=== PATIENT | female | born 1995 | race Caucasian/White ===

== ENCOUNTER 2018-11-02 16:42 | Emergency (ER) | payer OTHER ==
[2018-11-02 17:05] VITALS: BP 94/48; PULSE 92; TEMP 98.4; BMI 23.4
[2018-11-02] MEDS ORDERED: RANITIDINE HCL 150 MG/10 ML UNIT-DOSE PO ONE (17:38)
--- NOTE | 2018-11-02 18:05 | PDOC ---
History of Present Illness - General Chief Complaint: Pain, Acute Stated Complaint: ABDOMINAL PAIN Time Seen by Provider: 11/02/18 17:22 History Source: Patient Exam Limitations: No Limitations Past History - Past Medical History Allergies/Adverse Reactions: Allergies Allergy/AdvReac Type Severity Reaction Status Date / Time Penicillins Allergy Verified 11/02/18 17:02 Home Medications: Ambulatory Orders Azithromycin [Zithromax -] 250 mg PO DAILY #4 tab 04/12/16 Cardiac Disorders: Yes (palpitations) - Suicide/Smoking/Psychosocial Hx Smoking History: Never smoked Have you smoked in the past 12 months: No Hx Alcohol Use: No Drug/Substance Use Hx: No Substance Use Type: None *Physical Exam - Vital Signs Last Vital Signs Temp Pulse Resp BP Pulse Ox 98.4 F 92 H 16 94/48 L 100 11/02/18 17:02 11/02/18 17:02 11/02/18 17:02 11/02/18 17:02 11/02/18 17:02 - Physical Exam General Appearance: No: Apparent Distress Respiratory/Chest: positive: Lungs Clear, Normal Breath Sounds. negative: Respiratory Distress Cardiovascular: positive: Regular Rhythm, Regular Rate, S1, S2. negative: Murmur Gastrointestinal/Abdominal: positive: Tender (mild TTP along epigastric site), Soft. negative: Distended, Guarding, Rebound, Tenderness, Hernia, Mass Musculoskeletal: negative: CVA Tenderness Neurologic: positive: Alert, Normal Mood/Affect ED Treatment Course - ADDITIONAL ORDERS Additional order review: Laboratory Results 11/02/18 17:40 Urine HCG, Qual Negative - RADIOLOGY Radiology Studies Ordered: Category Date Time Status ABDOMEN FLAT & UPRIGHT [RAD] Stat Radiology 11/02/18 17:51 Ordered - Medications Given in the ED: ED Medications Discontinued Medications Generic Name Dose Route Start Last Admin Trade Name Freq PRN Reason Stop Dose Admin Ranitidine HCl 150 mg 11/02/18 17:38 11/02/18 17:55 Zantac Oral Solution - PO 11/02/18 17:39 150 mg ONCE ONE Administration Medical Decision Making - Medical Decision Making 23 y/o F hx of GERD, pancreatic CA s/p whipple (2 years ago), scoliosis presents with upper abdominal pain x 2 weeks, worse in AM and with food intake. States currently only takes Tums as needed for GERD Also having constipation x 2 weeks for which she has not yet tried any medications. Last BM was 2-3 days ago. Went to UC yesterday where she had labs and RUQ sono done which were normal per patient. Denies fever, sob, cp, n/v, urinary complaints. +social alcohol intake. Denies smoking. Used to smoke marijuana but quit in 05/2018. Possible pain related to GERD vs constipation UCG done and was negative Plan: Trial of Zantac, Abdominal flat and upright xray 11/02/18 17:57 Abdominal xray shows moderate stool, no evidence of obstruction No evidence of fecal impaction based on rectal exam Patient currently drinking Mg Citrate Will reassess how patient feels afterward 11/02/18 18:51 Patient signed out to Royce Holt pending reassessment 11/02/18 19:06 *DC/Admit/Observation/Transfer Diagnosis at time of Disposition: GERD (gastroesophageal reflux disease) Qualifiers: Esophagitis presence: esophagitis presence not specified Qualified Code(s): K21.9 - Gastro-esophageal reflux disease without esophagitis Constipation Qualifiers: Constipation type: unspecified constipation type Qualified Code(s): K59.00 - Constipation, unspecified - Referrals - Patient Instructions - Post Discharge Activity
[2018-11-02] MEDS ORDERED: MAGNESIUM CITRATE 300 ML BOTTLE PO ONE (18:30)
--- NOTE | 2018-11-02 19:27 | PDOC ---
*Physical Exam - Vital Signs Last Vital Signs Temp Pulse Resp BP Pulse Ox 98.4 F 92 H 16 94/48 L 100 11/02/18 17:02 11/02/18 17:02 11/02/18 17:02 11/02/18 17:02 11/02/18 17:02 - Physical Exam General Appearance: Yes: Appropriately Dressed. No: Apparent Distress HEENT: positive: Normal ENT Inspection Neck: positive: Trachea midline, Supple Respiratory/Chest: positive: Lungs Clear, Normal Breath Sounds. negative: Respiratory Distress, Accessory Muscle Use Cardiovascular: positive: Regular Rhythm, Regular Rate. negative: Murmur Gastrointestinal/Abdominal: positive: Normal Bowel Sounds, Tender (mild epigastric), Soft Musculoskeletal: positive: Normal Inspection. negative: CVA Tenderness ED Treatment Course - ADDITIONAL ORDERS Additional order review: Laboratory Results 11/02/18 17:40 Urine HCG, Qual Negative - Medications Given in the ED: ED Medications Discontinued Medications Generic Name Dose Route Start Last Admin Trade Name Freq PRN Reason Stop Dose Admin Magnesium Citrate 300 ml 11/02/18 18:30 11/02/18 18:46 Citroma - PO 11/02/18 18:31 300 ml ONCE ONE Administration Ranitidine HCl 150 mg 11/02/18 17:38 11/02/18 17:55 Zantac Oral Solution - PO 11/02/18 17:39 150 mg ONCE ONE Administration Progress Note - Progress Note Progress Note: Received signout from NATASHA Pascal. Briefly this is a 23-year-old woman past medical history of GERD, pancreatic cancer status post Whipple 2017 presents with upper abdominal pain for the past 2 weeks. Patient was seen at urgent care and told to follow up with GI. Patient had labs and right upper quadrant ultrasound was performed which the patient states were unremarkable. Abdominal x-ray shows moderate stool without evidence of obstruction or free air. Vital signs remarkable for blood pressure 94/48, heart rate of 92. Patient has received mag citrate is pending reevaluation. Medical Decision Making - Medical Decision Making 11/02/18 21:02 Patient reports she's been passing flatus and has had improvement in pain she is feeling. Patient feels safe for discharge. I will discharge the patient home to follow-up with senior safety management consultant. Patient reports she has a hard time getting an appointment with her senior safety management consultant. I will provide her with a number of an additional resource should she need it. *DC/Admit/Observation/Transfer Diagnosis at time of Disposition: GERD (gastroesophageal reflux disease) Qualifiers: Esophagitis presence: esophagitis presence not specified Qualified Code(s): K21.9 - Gastro-esophageal reflux disease without esophagitis Constipation Qualifiers: Constipation type: unspecified constipation type Qualified Code(s): K59.00 - Constipation, unspecified - Discharge Dispostion Disposition: HOME Condition at time of disposition: Fair Decision to Admit order: No - Referrals Referrals: Kee George MD [Staff Physician] - - Patient Instructions Additional Instructions: Rest, drink lots of fluids: Teas, water, soups Judy ghazal, carbonated beverages for the bubbles May try peppermint teas Avoid heavy , spicy or fatty foods until symptoms have resolved Continue [id number] medications for symptomatic relief Tylenol or Motrin for fever and pain You have been given a referral for a senior safety management consultant. Call for re-evaluation of your symptoms. Followup with private physician in one to 2 days as needed Return to emergency department for worsened symptoms, fevers, dehydration - Post Discharge Activity
== END 2018-11-02 20:50 | disposition home or self-care (01) ==
LOC: JER 16:42
DX: K21.9 Gastro-esophageal reflux disease without esophagitis (principal); K59.00 Constipation, unspecified; Z85.07 Personal history of malignant neoplasm of pancreas
CPT/HCPCS: 74019-TC-FY; 84703; 99281-25

== ENCOUNTER 2018-12-10 09:09 | Emergency (ER) | payer OTHER ==
[2018-12-10 09:17] VITALS: BP 98/61; PULSE 79; TEMP 98.3; BMI 23.4
[2018-12-10] MEDS ORDERED: MAG HYDROX/AL HYDROX/SIMETH 30 ML UNIT-DOSE CUP PO ONE (09:42)
[2018-12-10] MEDS ORDERED: MAG HYDROX/AL HYDROX/SIMETH 30 ML UNIT-DOSE CUP ONE (09:52)
--- NOTE | 2018-12-10 10:19 | PDOC ---
History of Present Illness - General Chief Complaint: Diarrhea Stated Complaint: DIARRHEA / LWR ABD PAIN Time Seen by Provider: 12/10/18 09:31 History Source: Patient Exam Limitations: Clinical Condition - History of Present Illness Travel History: No Initial Comments: 12/10/18 10:00 Patient with no sig PMhx present with complains of 7 days h/o diarrhea and cramping suprapubic abd discomfort after eating at an [place] restaurant [facility] who puts raw eggs on pasta as pasta is supposed to cook eggs. Patient report she was seen in urgent care 2 days ago and full workup of done on her including blood work and stool cx which she is waiting for results but was forced by her sister to come to ED this AM for evaluation. Patient report a prescription for Abx and other medications as sent to pharmacy but urgent care which she is to pickup today. Denies fever, chills, N/V, weakness, urinary symptoms or vaginal symptoms.Denies blood or mucus in stool. Timing/Duration: reports: other (1 week) Quality: reports: cramping Abdominal Pain Onset Location: reports: suprapubic Pain Radiation: reports: no radiation Activities at Onset: reports: none Aggravating Factors: improves with: None Alleviating Factors: improves with: None, Defecation, Passing Gas. worse with: Voiding, Vomiting Past History - Past Medical History Allergies/Adverse Reactions: Allergies Allergy/AdvReac Type Severity Reaction Status Date / Time Penicillins Allergy Verified 12/10/18 09:17 Home Medications: Ambulatory Orders NK [No Known Home Medication] 12/10/18 Cardiac Disorders: Yes (palpitations) COPD: No - Suicide/Smoking/Psychosocial Hx Smoking History: Never smoked Have you smoked in the past 12 months: No Hx Alcohol Use: No Drug/Substance Use Hx: No Substance Use Type: None Review of Systems - Review of Systems Able to Perform ROS?: Yes Is the patient limited Lithuanian proficient: No Constitutional: No: Chills, Fever, Malaise HEENTM: No: Symptoms Reported Respiratory: No: Symptoms reported Cardiac (ROS): No: Symptoms Reported ABD/GI: Yes: Symptoms Reported, See HPI, Diarrhea, Abdominal cramping ( suprapubic discomfort). No: Abdominal Distended, Abd. Pain w/ defecation, Blood Streaked Bowels, Constipated, Difficulty Swallowing, Nausea, Poor Appetite , Poor Fluid Intake, Rectal Bleeding, Vomiting, Indigestion, Tarry Stools : No: Burning, Dysuria, Discharge, Frequency, Urgency Musculoskeletal: No: Symptoms Reported Integumentary: No: Symptoms Reported Neurological: No: Symptoms reported, Weakness, Dizziness All Other Systems: Reviewed and Negative *Physical Exam - Vital Signs Last Vital Signs Temp Pulse Resp BP Pulse Ox 98.3 F 79 18 98/61 99 12/10/18 09:14 12/10/18 09:14 12/10/18 09:14 12/10/18 09:14 12/10/18 09:14 - Physical Exam General Appearance: Yes: Nourished, Appropriately Dressed. No: Apparent Distress ED Treatment Course - LABORATORY CBC & Chemistry Diagram: 12/10/18 09:54 12/10/18 09:54 - Medications Given in the ED: ED Medications Discontinued Medications Generic Name Dose Route Start Last Admin Trade Name Freq PRN Reason Stop Dose Admin Al Hydroxide/Mg Hydroxide 30 ml 12/10/18 09:42 12/10/18 10:03 Mylanta Oral Suspension - PO 12/10/18 09:43 30 ml ONCE ONE Administration Medical Decision Making - Medical Decision Making 12/10/18 10:00 Patient with no sig PMhx present with complains of 7 days h/o diarrhea and cramping suprapubic abd discomfort after eating at an [place] restaurant [facility] who puts raw eggs on pasta as pasta is supposed to cook eggs. Patient report she was seen in urgent care 2 days ago and full workup of done on her including blood work and stool cx which she is waiting for results but was forced by her sister to come to ED this AM for evaluation. Patient report a prescription for Abx and other medications which pt does not know which medications was sent to pharmacy but urgent care which she is to pickup today. Denies fever, chills, N/V, weakness, urinary symptoms or vaginal symptoms. Denies blood or mucus in stool. Exam significant for mild suprapubic abd tenderness on deep palpation w/o guarding or rebound otherwise with no other symptoms. Patient symptoms likely viral gastroenteritis vs bacteria gastroenteritis. CBC, CMP, lipase labs orderd. UA, UHCG and UCx labs ordered. treat based on labs results 12/10/18 11:23 CBC, CMP nd UA labs wnl. Patient stable for outpatient management of gastroenteritis with Abx prescribed from urgent care with advise to increase fluid intake and FI f/u. Plan discussed with patient and patient agrees with plan *DC/Admit/Observation/Transfer Diagnosis at time of Disposition: Gastroenteritis - Discharge Dispostion Disposition: HOME Condition at time of disposition: Stable Decision to Admit order: No - Referrals Referrals: Fred Gillespie DO [Staff Physician] - - Patient Instructions Printed Discharge Instructions: Gastroenteritis Diet Additional Instructions: Your labs is normal. Your symptoms is likely from stomach bug. Take medications prescribed by urgent care provider. Increase fluid intake. Follow-up with referred GI doctor if no improvement in 3 days - Post Discharge Activity
[2018-12-10 10:37] LABS: BASO % 0.8 % (0-2.0); EOS % 3.1 % (0-4.5); HEMATOCRIT 36.2 % (32.4-45.2); HEMOGLOBIN 12.3 GM/dL (10.7-15.3); LYMPH % 27.3 % (8-40); MCHC 33.9 g/dl (32.0-36.0); MEAN CELL VOLUME 91.3 fl (80-96); MEAN PLT VOLUME 7.3 fl (7.5-11.1); MONO % 12.8 % (3.8-10.2); PLATELET COUNT 325 K/MM3 (134-434); RBC 3.96 M/mm3 (3.60-5.2); RDW 13.2 % (11.6-15.6); WHITE BLOOD COUNT 9.6 K/mm3 (4.0-10.0)
[2018-12-10 10:53] LABS: PH,URINE 5.5 (5.0-8.0); URINE APPEARANCE CLEAR; URINE BILIRUBIN NEGATIVE (NEGATIVE); URINE COLOR YELLOW; URINE GLUCOSE (UA) NEGATIVE (NEGATIVE); URINE KETONE NEGATIVE (NEGATIVE); URINE LEUK ESTERASE NEGATIVE (NEGATIVE); URINE NITRITE NEGATIVE (NEGATIVE); URINE PROTEIN NEGATIVE (NEGATIVE); URINE UROBILINOGEN 0.2 mg/dL (0.2-1.0)
[2018-12-10 11:12] LABS: ALBUMIN 3.7 g/dl (3.4-5.0); BILIRUBIN,TOTAL 0.4 mg/dL (0.2-1); BLOOD UREA NITROGEN 16.2 mg/dL (7-18); CALCIUM 8.8 mg/dL (8.5-10.1); CREATININE 0.6 mg/dL (0.55-1.3); POTASSIUM 4.4 mmol/L (3.5-5.1); TOT PROT 6.9 g/dl (6.4-8.2)
== END 2018-12-10 11:36 | disposition home or self-care (01) ==
LOC: JER 09:09
DX: K52.9 Noninfective gastroenteritis and colitis, unspecified (principal)
CPT/HCPCS: 36415; 80053; 81003; 83690; 84703; 85025; 87086; 99282-25

== ENCOUNTER 2022-06-01 12:54 | Emergency (ER) | payer OTHER ==
[2022-06-01 13:12] VITALS: BP 129/66; PULSE 84; RESP 17; TEMP 97.8; BMI 26.4
== END 2022-06-01 14:36 | disposition home or self-care (01) ==
LOC: JERFT 12:54
DX: Z48.00 Encounter for change or removal of nonsurgical wound dressing (principal)
CPT/HCPCS: 99281-25

== ENCOUNTER 2024-03-10 11:25 | Emergency (ER) | payer OTHER ==
[2024-03-10 11:34] VITALS: BP 114/74; PULSE 102; RESP 18; TEMP 98.7; BMI 25.8
[2024-03-10] MEDS ORDERED: IBUPROFEN 600 MG TABLET (FP) PO ONE (12:28)
[2024-03-10] MEDS: IBUPROFEN 600 MG TABLET (FP) PO ONE (12:30)
[2024-03-10 13:41] LABS: METHADONE, UR NEGATIVE (NEGATIVE); OPIATES, URI NEGATIVE (NEGATIVE)
[2024-03-10 13:42] LABS: COCAINE, UR NEGATIVE (NEGATIVE); PHENCYCLIDINE,URINE NEGATIVE (NEGATIVE); URINE BARBITURATES NEGATIVE (NEGATIVE)
[2024-03-10 13:50] LABS: URINE AMPHETAMINES NEGATIVE (NEGATIVE); URINE BENZODIAZEPINES NEGATIVE (NEGATIVE)
[2024-03-10 15:17] LABS: HIV INTERPRETATION NEGATIVE (NEGATIVE)
== END 2024-03-10 13:31 | disposition home or self-care (01) ==
LOC: JERFT 11:25
DX: R51.9 Headache, unspecified (principal)
CPT/HCPCS: 36415; 80307; 84703; 86803; 87389; 99283-25